=== PATIENT | male | born 1955 | race Caucasian/White ===

== ENCOUNTER 2018-12-31 09:12 | Observation (INO) ==
[2018-12-31 12:07] LABS: Basophils % 0.5 % (0.0-0.8); Eosinophils # 0.2 10*3/uL (0.0-0.87); Hematocrit 41.5 VOL% (42.0-52.0); Hemoglobin 13.9 GM/DL (14.0-18.0); Immature Granulocytes % 0.2 %; Immature Granulocytes Absolute 0.02 #; Lymphocytes # 1.5 10*3/uL (1.4-4.0); Mean Corpuscular HGB Conc 33.5 GM/DL (32-36); Mean Corpuscular Volume 91.8 FL (87-102); Mean Platelet Volume 10.5 FL (9.6-12.0); Monocytes % 7.9 % (1.7-12.7); Neutrophils % 71.4 % (38.7-73.9); Platelet Count 252 T/CUMM (130-400); Red Blood Count 4.52 MC/CUMM (3.8-5.5); Red Cell Distribution Width 12.6 % (9.3-17.3); White Blood Count 8.4 T/CUMM (4-12)
[2018-12-31 12:26] LABS: Calcium 9.4 MG/DL (8.5-10.1); Osmolality,Calculated 273.8 MOS/KG (273-304)
[2018-12-31] MEDS ORDERED: MAGNESIUM HYDROXIDE SUSP 30 ML UDCUP PO PRN (13:01)
[2018-12-31] MEDS ORDERED: MORPHINE 4 MG/1 ML VIAL IV PRN ×2 (13:01)
[2018-12-31] MEDS ORDERED: ONDANSETRON 4 MG/2 ML VIAL IV PRN (13:01)
[2018-12-31] MEDS ORDERED: CLINDAMYCIN INJ 900 MG in PREMIX 1 EACH IV STA (13:07)
[2018-12-31] MEDS ORDERED: PIPERACILLIN/TAZOBACTAM 3,375 MG in SODIUM CHLORIDE 0.9% 100 ML IV STA (13:10)
[2018-12-31] MEDS ORDERED: CLINDAMYCIN INJ 0 ML IV ONE (13:12)
[2018-12-31] MEDS: CLINDAMYCIN INJ 600 MG in PREMIX 1 EACH IV SCH (19:23)
[2018-12-31] MEDS: PIPERACILLIN/TAZOBACTAM 3,375 MG in SODIUM CHLORIDE 0.9% 100 ML IV SCH (20:31)
[2019-01-01] MEDS: CLINDAMYCIN INJ 600 MG in PREMIX 1 EACH IV SCH ×3 (01:38→19:10)
[2019-01-01] MEDS: PIPERACILLIN/TAZOBACTAM 3,375 MG in SODIUM CHLORIDE 0.9% 100 ML IV SCH ×3 (05:59→21:29)
[2019-01-01] MEDS: SODIUM HYPOCHLORITE 0.25% IRRIG 473 ML BOTTLE TOP SCH (09:00)
[2019-01-02] MEDS: CLINDAMYCIN INJ 600 MG in PREMIX 1 EACH IV SCH ×2 (02:03→08:20)
[2019-01-02] MEDS: PIPERACILLIN/TAZOBACTAM 3,375 MG in SODIUM CHLORIDE 0.9% 100 ML IV SCH (04:09)
[2019-01-02 08:28] VITALS: BP 148/100
[2019-01-02] MEDS: SODIUM HYPOCHLORITE 0.25% IRRIG 473 ML BOTTLE TOP SCH (09:00)
== END 2019-01-02 09:25 | disposition home or self-care (01) ==
LOC: N.EDINP 09:12 → N.ED 09:12 → N.3E 14:35
PROVIDERS: ADMIT Orthopaedic Surgery; ATTEND Orthopaedic Surgery

== ENCOUNTER 2021-11-05 06:38 | Observation (INO) ==
[2021-11-05] MEDS ORDERED: ASPIRIN 325 MG TABLET PO STA (07:14)
[2021-11-05] MEDS ORDERED: KETOROLAC 30 MG/1 ML VIAL IV STA (07:14)
[2021-11-05] MEDS ORDERED: METOPROLOL TARTRATE 5 MG/5 ML VIAL IV STA ×2 (07:14→09:03)
[2021-11-05 07:20] LABS: Basophils % 0.3 % (0.0-0.8); Eosinophils # 0.1 10*3/uL (0.0-0.87); Eosinophils % 1.9 % (0.00-10.9); Hematocrit 45.6 VOL% (42.0-52.0); Hemoglobin 15.4 GM/DL (14.0-18.0); Immature Granulocytes % 0.5 %; Immature Granulocytes Absolute 0.03 #; Lymphocytes # 1.5 10*3/uL (1.4-4.0); Lymphocytes % 23.2 % (21.2-54.2); Mean Corpuscular HGB Conc 33.8 GM/DL (32-36); Mean Corpuscular Volume 92.9 FL (87-102); Mean Platelet Volume 10.3 FL (9.6-12.0); Monocytes # 0.4 10*3/uL (0.11-0.8); Monocytes % 6.3 % (1.7-12.7); Neutrophils % 67.8 % (38.7-73.9); Platelet Count 253 T/CUMM (130-400); Red Blood Count 4.91 MC/CUMM (3.8-5.5); Red Cell Distribution Width 13.2 % (9.3-17.3); White Blood Count 6.3 T/CUMM (4-12)
[2021-11-05 07:38] LABS: Alanine Aminotransferase 23 U/L (16-61); Albumin 3.5 G/DL (3.4-5.0); Alkaline Phosphatase 67 U/L (45-117); Aspartate Amino Transferase 15 U/L (0-37); Bilirubin,Total < 0.39 MG/DL (0.20-1.00); Blood Urea Nitrogen 12 MG/DL (7-18); Calcium 8.6 MG/DL (8.5-10.1); Carbon Dioxide 27 MMOL/L (21-32); Chloride 107 MMOL/L (98-107); Glucose 129 MG/DL (74-106); Osmolality,Calculated 280.4 MOS/KG (273-304); Potassium 4.1 MMOL/L (3.5-5.1); Sodium 140 MMOL/L (136-145); Total Protein 6.3 G/DL (6.4-8.2)
[2021-11-05] MEDS ORDERED: HYDROmorphone 1 MG/1 ML SYRINGE ONE (08:46)
[2021-11-05] MEDS ORDERED: ONDANSETRON 4 MG/2 ML VIAL ONE (08:52)
[2021-11-05] MEDS ORDERED: HYDROmorphone 1 MG/1 ML SYRINGE IV STA (09:00)
[2021-11-05] MEDS ORDERED: ONDANSETRON 4 MG/2 ML VIAL IV STA (09:03)
[2021-11-05] MEDS ORDERED: hydrALAZINE 20 MG/1 ML VIAL IV PRN (10:01)
[2021-11-05] MEDS ORDERED: GLUCAGON 1 MG VIAL IM PRN (10:01)
[2021-11-05] MEDS ORDERED: DEXTROSE 10% 250 ML BAG IV PRN (10:01)
[2021-11-05] MEDS ORDERED: ALUMINUM/MAGNES/SIMETH MAX STR 30 ML UDCUP PO PRN (10:01)
[2021-11-05] MEDS ORDERED: ONDANSETRON 4 MG/2 ML VIAL IV PRN (10:01)
[2021-11-05] MEDS ORDERED: DOCUSATE SODIUM 100 MG CAPSULE PO PRN (10:01)
[2021-11-05] MEDS ORDERED: ACETAMINOPHEN 325 MG TABLET PO PRN (10:01)
[2021-11-05 10:34] LABS: Thyroid Stimulating Hormone 2.62 uIU/ml (0.358-3.74)
[2021-11-05] MEDS ORDERED: PANTOPRAZOLE 40 MG TABLET PO ONE (10:51)
[2021-11-05] MEDS: ENOXAPARIN 40 MG/0.4 ML SYRINGE SUBCUT SCH (10:55)
[2021-11-05] MEDS: LOSARTAN 25 MG TABLET PO SCH ×2 (10:55→20:35)
[2021-11-05] MEDS: MORPHINE 2 MG/1 ML SYRINGE IV PRN ×3 (11:05→20:35)
[2021-11-06] MEDS: MORPHINE 2 MG/1 ML SYRINGE IV PRN (04:35)
[2021-11-06] MEDS ORDERED: PANTOPRAZOLE 40 MG TABLET PO SCH (09:00)
[2021-11-06] MEDS ORDERED: NITROGLYCERIN SL 0.4 MG TABLET SL PRN (09:56)
[2021-11-06] MEDS ORDERED: KETOROLAC 30 MG/1 ML VIAL IV SCH (10:00)
[2021-11-06] MEDS ORDERED: ENOXAPARIN 80 MG/0.8 ML SYRINGE SUBCUT ONE (10:02)
[2021-11-06] MEDS ORDERED: ASPIRIN CHEW 81 MG TABLET PO ONE (10:09)
[2021-11-06 10:55] VITALS: BP 182/92
[2021-11-06] MEDS: ENOXAPARIN 40 MG/0.4 ML SYRINGE SUBCUT SCH (10:59)
[2021-11-06] MEDS: LOSARTAN 25 MG TABLET PO SCH (10:59)
[2021-11-07] MEDS ORDERED: ASPIRIN EC 81 MG TABLET PO SCH (09:00)
[2021-11-07] MEDS ORDERED: ROSUVASTATIN 20 MG TABLET PO SCH (09:00)
== END 2021-11-06 10:25 | disposition left against medical advice (07) ==
LOC: N.ED 06:38 → N.TELEN 06:38 → N.EDINP 06:38 → N.TELEN 23:50
PROVIDERS: ADMIT Internal Medicine; ATTEND Internal Medicine